=== PATIENT | female | born 1985 | race African-American/Black ===

== ENCOUNTER 2020-03-08 23:18 | Emergency (ER) | payer OTHER ==
[~2020-03-08] VITALS: Ht 162.6 cm; Wt 79.8 kg
[2020-03-08 23:32] VITALS: BP 110/71
[2020-03-08] MEDS ORDERED: PREDNISONE20 MG ORAL (23:41)
[2020-03-08 23:46] VITALS: BP 112/74
--- NOTE | 2020-03-09 01:15 | Emergency Room Report ---
History of Present Illness General Chief Complaint: Skin Rash/Abscess Source: Patient Present Illness HPI 34-year-old female presents complaining of rash. States she has had this rash for the last 3 weeks. Was seen by her PMD and prescribed right triamcinolone and hydrocortisone cream. States it is not helping. States she is still very itchy. Denies pain. Denies any known food or drug allergies. States she notices mostly on her chest back and upper arms. No other aggravating relieving factors. Denies any other associated symptoms Allergies: Coded Allergies: No Known Allergies (Unverified , 03/08/20) COVID-19 Screening Contact w/high risk pt: No Experienced COVID-19 symptoms?: No COVID-19 Testing performed [employer]: No Patient History Past Medical History: none Past Surgical History: none Pertinent Family History: none Social History: Denies: smoking, alcohol use, drug use Last Menstrual Period: 02/2020 Now: No Immunizations: UTD Reviewed Nursing Documentation: PMH: Agreed; PSxH: Agreed Nursing Documentation-PMH Past Medical History: No Stated History Review of Systems All Other Systems: negative except mentioned in HPI Physical Exam Vital Signs Date Time Temp Pulse Resp B/P (MAP) Pulse Ox O2 Delivery O2 Flow Rate FiO2 03/08/20 23:22 97.5 90 18 110/71 (84) 97 Room Air Sp02 EP Interpretation: reviewed, normal General Appearance: no apparent distress, alert, GCS 15, non-toxic Head: normocephalic, atraumatic Eyes: bilateral eye normal inspection, bilateral eye PERRL ENT: hearing grossly normal, normal pharynx, no angioedema, normal voice Neck: full range of motion, supple/symm/no masses Respiratory: chest non-tender, lungs clear, normal breath sounds, speaking full sentences Cardiovascular #1: regular rate, rhythm, no edema Cardiovascular #2: 2+ carotid (R), 2+ carotid (L), 2+ radial (R), 2+ radial (L) , 2+ dorsalis pedis (R), 2+ dorsalis pedis (L) Gastrointestinal: normal bowel sounds, non tender, soft, non-distended, no guarding, no rebound Rectal: deferred Genitourinary: normal inspection, no CVA tenderness Musculoskeletal: back normal, normal range of motion, gait/station normal, non- tender Neurologic: alert, motor strength/tone normal, oriented x3, sensory intact, responsive, speech normal Psychiatric: judgement/insight normal, memory normal, mood/affect normal, no suicidal/homicidal ideation Reflexes: 3+ bicep (R), 3+ bicep (L), 3+ tricep (R), 3+ tricep (L), 3+ knee (R) , 3+ knee (L) Skin: rash - eczematous rash to chest, back. urticaria noted to back Lymphatic: no adenopathy Medical Decision Making Diagnostic Impression: Primary Impression: Rash and other nonspecific skin eruption ER Course Hospital Course 34 yo F presents with rash Differential diagnoses include: Cellulitis, dermatitis, insect bite, abscess Clinical course Patient placed on stretcher. After initial history, physical exam reveals a young female in no acute distress. On exam there is looking rash to the chest and back. Nonerythematous base. There also appears to be areas of urticaria to the lower back and arms. I discussed findings with patient. States her children have eczema. No prior history for herself. Patient is already taking Benadryl. Will prescribe prednisone. Given prednisone in ED. Safe for discharge for close outpatient follow-up. Recommend dermatology referral Diagnosis - rash stable and discharged to home with prescription for prednisone. continue benedryl. Instructed to followup with PMD/dermatology. Instructed return to ED if symptoms recur or worsen Last Vital Signs Date Time Temp Pulse Resp B/P (MAP) Pulse Ox O2 Delivery O2 Flow Rate FiO2 03/08/20 23:46 97.5 80 16 112/74 98 Room Air Status: improved Disposition: HOME, SELF-CARE Condition: Stable Scripts Prednisone* (PREDNISONE*) 20 Mg Tablet 40 MG ORAL DAILY, #10 TAB Prov: Cezar Rooney MD 03/08/20 Referrals: NON PHYSICIAN (PCP) Patient Instructions: Eczema, Hives, [id number] Cezar Rooney MD Mar 09, 2020 01:15
== END 2020-03-08 23:46 | disposition home or self-care (01) ==
LOC: EMR 23:35
DX: R21 Rash and other nonspecific skin eruption (principal)
CPT/HCPCS: J7512; Z7502; 99282